=== PATIENT | male | born 1985 ===

== ENCOUNTER 2017-12-23 18:13 | Emergency (ER) | payer SELFPAY ==
[2017-12-23] MEDS: ONDANSETRON 4 MG INJ IV (19:30)
[2017-12-23] MEDS: morphine 4 MG/ML VIAL IV (19:31)
[2017-12-23] MEDS: SOD CHLORIDE 0.9% 1,000 ML IV (19:31)
[2017-12-23 19:54] LABS: ADD MAN DIFF? NO
[2017-12-23 19:57] LABS: WHITE BLOOD COUNT 8.1 10^3/ul (4.8-10.8)
[2017-12-23 19:57] LABS: BASOPHIL # 0.1 10^3/ul (0.0-0.1); BASOPHILS % 0.6 % (0.0-2.0); EOSINOPHILS # 0.1 10^3/ul (0.0-0.5); EOSINOPHILS % 0.6 % (0.0-7.0); HEMATOCRIT 48.6 % (42.0-52.0); HEMOGLOBIN 17.6 g/dl (14.0-18.0); LYMPHOCYTES % 24.6 % (15.0-51.0); MEAN CORPUSCULAR HEMOGLOBIN 31.6 pg (29.0-33.0); MEAN CORPUSCULAR HGB CONC 36.2 g/dl (32.0-37.0); MEAN CORPUSCULAR VOLUME 87.3 fl (82.0-101.0); MEAN PLATELET VOLUME 10.2 fl (7.4-10.4); MONOCYTE # 0.7 10^3/ul (0.3-0.9); MONOCYTES % 8.2 % (0.0-11.0); NEUTROPHIL # 5.3 10^3/ul (1.6-7.5); NEUTROPHILS % 65.8 % (39.0-77.0); PLATELET COUNT 243 10^3/UL (140-415); RED BLOOD COUNT 5.57 10^6/ul (4.70-6.10); RED CELL DISTRIBUTION WIDTH 11.9 % (11.5-14.5)
[2017-12-23 20:16] LABS: ALANINE AMINOTRANSFERASE 60 IU/L (13-69); ALBUMIN 4.9 g/dl (3.3-4.9); ALBUMIN/GLOBULIN RATIO 1.48; ALKALINE PHOSPHATASE 63 IU/L (42-121); AMYLASE 62 U/L (11-123); ANION GAP 19 (8-16); ASPARTATE AMINO TRANSFERASE 44 IU/L (15-46); BILIRUBIN,INDIRECT 0.4 mg/dl (0-1.1); BILIRUBIN,TOTAL 0.4 mg/dl (0.2-1.3); BLOOD UREA NITROGEN 16 mg/dl (7-20); CALCIUM 9.5 mg/dl (8.4-10.2); CARBON DIOXIDE 27 mmol/L (21-31); CHLORIDE 102 mmol/L (97-110); CREATININE 0.94 mg/dl (0.61-1.24); ETHANOL < 10.0 mg/dl; GLUCOSE 95 mg/dl (70-220); SODIUM 144 mmol/L (135-144); TOTAL PROTEIN 8.2 g/dl (6.1-8.1)
[2017-12-23 20:27] LABS: TROPONIN-I < 0.012 ng/ml (0.00-0.12)
== END 2017-12-23 22:15 | disposition home or self-care (01) ==
LOC: FTE 18:13
DX: I10 Essential (primary) hypertension (principal); G44.209 Tension-type headache, unspecified, not intractable; F10.120 Alcohol abuse with intoxication, uncomplicated
CPT/HCPCS: 70450; 80053; 80306; 82150; 84484; 85025; 93005; 96374; 96375; 99285-25